=== PATIENT | female | born 1945 | race Caucasian/White ===

== ENCOUNTER 2023-10-07 04:12 | Outpatient (CLI) | payer OTHER | END 2023-10-07 23:59 | disposition EMS.NT | LOC: EMS 04:12 | DX: Z03.89 Encounter for observation for other suspected diseases and conditions ruled out (principal); Z91.81 History of falling ==

== ENCOUNTER 2024-09-21 17:58 | Inpatient (IN) ==
--- NOTE | 2024-09-21 18:08 | ED Physician Documentation ---
History of Present Illness Stated complaint Stated Complaint: AMS Chief complaint Chief Complaint: Neuro History obtained from History obtained from: EMS History of Present Illness Pain level max: 0 Pain level now: 0 Additonal information Additional information: 79-year-old female with reportedly acute altered mental status today. She is unable to give any history. EMS states that her claims that around 230 today he noticed that she was altered and not responding correctly. EMS found her combative and confused. Patient reportedly has a history of atrial fibrillation. She is on Pradaxa. Blood sugar normal with EMS. History of hypertension. Reportedly has had constipation. No reported falls or trauma. Patient received Versed with EMS. As well as Zofran. [place] Coma Scale Assess Eye opening: To Pain Verbal response: Inappropriate Motor response: Withdraws to Pain Total score: 9 Review of Systems Status of ROS: unobtainable due to mental status Meds/Allgy Allergies Allergies Allergy/AdvReac Type Severity Reaction Status Date / Time No Known Drug Allergies Allergy Verified 09/21/24 18:15 PFSH Active Problems All Active Problems (Updated 09/21/24 @ 19:00 by Rob Zhang MD) Altered mental status (Acute) Medical History Medical History (Updated 09/21/24 @ 19:00 by Rob Zhang MD) Hypertension Hyperthyroidism Social History Social History (Updated 09/21/24 @ 18:32 by Salome Collazo RN) Smoking Status: Never smoker Living arrangement: At home Marital Status: Living Condition: With spouse/s.o. Relationship: Do you feel safe in your home environment?: Yes Suffered physical, verbal, emotional, or financial abuse?: No ETOH Use: Wine Frequency: Daily ETOH Use Details: 2-3 drinks per day per . Exam Exam Vital Signs: Vital Signs x48h Temp Pulse Resp BP Pulse Ox O2 Flow Rate 09/21/24 18:19 89 22 94 2 09/21/24 18:01 36.8 C 89 10 L 150/119 H 97 Constitutional writhing, moaning HENMT normocephalic, head/scalp atraumatic and oral mucous membranes normal Eyes PERRL Respiratory breath sounds equal bilaterally and normal respiratory effort Cardiovascular normal heart rate noted and regular rhythm noted Gastrointestinal abdomen soft to palpation, nontender to palpation and nondistended Extremities no deformity Neurology GCS calculation - Eye opening: To Pain Verbal response: Inappropriate Motor response: Withdraws to Pain Liset Coma Scale total score: 9 Skin skin color normal Results Vitals Vitals: Vital Signs - 24 hr 09/21/24 18:01 09/21/24 18:19 Temperature 36.8 C Temperature Source Temporal Artery Scan Pulse Rate 89 89 Respiratory Rate 10 L 22 Blood Pressure 150/119 H O2 Saturation 97 94 O2 Source Room air Nasal cannula If not protocol: Oxygen Flow, liters/minute 2 Pain Intensity 0 Oxygen O2 Source Nasal cannula Labs Labs: Laboratory Tests 09/21/24 09/21/24 18:05 18:15 WBC 12.4 H RBC 4.95 Hgb 15.8 Hct 48.0 H MCV 97.0 MCH 31.9 H MCHC 32.9 RDW 13.1 Plt Count 204 MPV 9.8 Neut # (Auto) 10.3 H Lymph # (Auto) 1.3 L [place] # (Auto) 0.8 Eos # (Auto) 0.0 Baso # (Auto) 0.1 Absolute Nucleated RBC 0.00 Nucleated RBC % 0.0 Sodium 137 Potassium 3.3 L Chloride 101 Carbon Dioxide 28 Anion Gap 8.0 BUN 8 Creatinine 0.7 Estimated GFR (MDRD) 81 L Glucose 180 H Calcium 9.1 Total Bilirubin 0.9 AST 21 ALT 26 Alkaline Phosphatase 75 Total Protein 6.6 Albumin 4.0 Globulin 2.6 Albumin/Globulin Ratio 1.5 Lipase 12 TSH 0.78 Urine Color YELLOW Urine Clarity CLEAR Urine pH 6.5 Ur Specific [place] 1.015 Urine Protein NEGATIVE Urine Glucose (UA) NEGATIVE Urine Ketones 15 H Urine Occult Blood NEGATIVE Urine Nitrite NEGATIVE Urine Bilirubin NEGATIVE Urine Urobilinogen 1 (NORMAL) Ur Leukocyte Esterase NEGATIVE Ur Microscopic Review NOT INDICATED Urine Culture Comments NOT INDICATED Salicylates < 1.5 Urine Opiates Screen NEGATIVE Ur Buprenorphine Scrn NEGATIVE Ur Oxycodone Screen NEGATIVE Urine Methadone Screen NEGATIVE Acetaminophen 0.2 Ur Barbiturates Screen NEGATIVE Ur Tricyclics Screen NEGATIVE Ur Phencyclidine Scrn NEGATIVE Ur Amphetamine Screen NEGATIVE U Methamphetamines Scrn NEGATIVE U Benzodiazepines Scrn NEGATIVE Urine Cocaine Screen NEGATIVE U Cannabinoids Screen NEGATIVE Ur Drug Screen Comment CUTOFF CONC BELOW: Ethyl Alcohol < 10.0 PD Medical Decision Making ED course Complexity details: reviewed results, re-evaluated patient, considered differential and d/w family ED course: 79-year-old female with reportedly acute altered mental status. The and daughter arrived in the emergency department and has been states that she had been diagnosed with dementia but has not seen anyone for this yet. He states that he left to get [place] food around noon today and when he returned home at around 230 he noticed that she was swatting things away, acting differently and not interacting. Labs are ordered. Head CT ordered. Versed and Haldol ordered. These are pending at the time of signout. Please see Dr. Hui's note for further care. Discharge Plan Discharge Clinical Impression: Altered mental status Qualifiers: Altered mental status type: unspecified Qualified Code(s): R41.82 - Altered mental status, unspecified Print Language: Portuguese Stand Alone Forms: PCP List
[2024-09-21 18:18] LABS: BASOPHILS # (AUTO) 0.1 10^3/uL (0.0-0.1); BASOPHILS % (AUTO) 0.4 %; HGB - HEMOGLOBIN 15.8 g/dL (12.0-16.0); LYMPHOCYTES # (AUTO) 1.3 10^3/uL (1.5-3.5); LYMPHOCYTES % (AUTO) 10.4 %; MEAN CORPUSCULAR HEMOGLOBIN 31.9 pg (27.0-31.0); MEAN CORPUSCULAR HGB CONC 32.9 g/dL (32.0-36.0); MEAN PLATELET VOLUME 9.8 fL (7.9-10.8); MONOCYTES # (AUTO) 0.8 10^3/uL (0.0-1.0); MONOCYTES % (AUTO) 6.1 %; NEUTROPHILS # (AUTO) 10.3 10^3/uL (1.5-6.6); NEUTROPHILS % (AUTO) 82.8 %; PLT - PLATELET COUNT 204 10^3/uL (130-450); RED BLOOD COUNT 4.95 10^6/uL (4.20-5.40); RED CELL DISTRIBUTION WIDTH 13.1 % (12.0-15.0); WHITE BLOOD COUNT 12.4 x10^3/uL (4.8-10.8)
[2024-09-21 18:24] LABS: BILIRUBIN,URINE NEGATIVE (NEGATIVE); CLARITY,URINE CLEAR (CLEAR); GLUCOSE, URINE (UA) NEGATIVE (NEGATIVE); KETONES,URINE (UA) 15 mg/dL (NEGATIVE); LEUKOCYTE ESTERASE, URINE NEGATIVE (NEGATIVE); NITRITE,URINE NEGATIVE (NEGATIVE); OCCULT BLOOD,URINE NEGATIVE (NEGATIVE); PH,URINE 6.5 PH (5.0-7.5); PROTEIN,URINE NEGATIVE (NEGATIVE); UROBILINOGEN,URINE 1 (NORMAL) E.U./dL (NORMAL)
[2024-09-21] MEDS: MIDAZOLAM 2 MG/2 ML VIAL IVP STA (18:24)
[2024-09-21 18:37] LABS: AMPHETAMINE SCREEN,URINE NEGATIVE (NEGATIVE); BARBITURATE SCREEN,UR NEGATIVE (NEGATIVE); BENZODIAZEPINES SCREEN, URINE NEGATIVE (NEGATIVE); BUPRENORPHINE SCREEN, URINE NEGATIVE (NEGATIVE); COCAINE SCREEN URINE NEGATIVE (NEGATIVE); METHADONE SCREEN, URINE NEGATIVE (NEGATIVE); METHAMPHETAMINES SCREEN, URINE NEGATIVE (NEGATIVE); OPIATE SCREEN, URINE NEGATIVE (NEGATIVE); OXYCODONE SCREEN, URINE NEGATIVE (NEGATIVE); THC CANNABINOID SCREEN, URINE NEGATIVE (NEGATIVE); TRICYCLIC ANTIDEPRESSANT,URINE NEGATIVE (NEGATIVE)
[2024-09-21 18:40] LABS: ACETAMINOPHEN 0.2 ug/mL; ALBUMIN/GLOBULIN RATIO 1.5 (1.0-2.2); ALKALINE PHOSPHATASE 75 IU/L (42-121); ALT ALANINE AMINOTRANSFERASE 26 IU/L (10-60); AST ASPARTATE AMINOTRANSFERASE 21 IU/L (10-42); BILIRUBIN,TOTAL 0.9 mg/dL (0.2-1.0); BUN - BLOOD UREA NITROGEN 8 mg/dL (6-20); CALCIUM 9.1 mg/dL (8.5-10.3); CARBON DIOXIDE - CO2 28 mmol/L (21-32); CHLORIDE 101 mmol/L (101-111); CREATININE 0.7 mg/dL (0.6-1.3); ETOH - ETHANOL < 10.0 mg/dL; GFR - MDRD 81 (>89); GLUCOSE 180 mg/dL (74-104); LIPASE 12 U/L (11-82); POTASSIUM 3.3 mmol/L (3.5-4.5); SALICYLATE < 1.5 mg/dL; SODIUM 137 mmol/L (135-145); TOTAL PROTEIN 6.6 g/dL (6.4-8.9)
[2024-09-21] MEDS: HALOPERIDOL 5 MG/ML VIAL IVP STA (18:44)
[2024-09-21 18:50] LABS: THYROID STIMULATING HORMONE 0.78 uIU/mL (0.34-5.60)
--- NOTE | 2024-09-21 19:47 | CT Report ---
PROCEDURE: CT Head WO INDICATIONS: altered mental status TECHNIQUE: Noncontrast 4.5 mm thick angled axial sections acquired from the foramen magnum to the vertex. For radiation dose reduction, the following was used: automated exposure control, adjustment of mA and/or kV according to patient size. COMPARISON: None. FINDINGS: Image quality: Excellent. CSF spaces: Mild prominence of the bifrontal extra-axial spaces, probably benign. Subcortical volume appears normal without significant atrophy. Basal cisterns are patent. No extra-axial fluid collections. Ventricles are normal in size and shape. Brain: No midline shift. No intracranial mass effect or hemorrhage. Odonnell- white matter interface is normal. Skull and face: Calvarium and visualized facial bones are intact, without suspicious lesions. Sinuses: Visualized sinuses and mastoids are clear. IMPRESSION: No acute intracranial pathology. Reviewed by: Ebony Guzman MD on 09/21/2024 7:46 PM PDT Approved by: Ebony Guzman MD on 09/21/2024 7:46 PM PDT Station ID: [id number]
[2024-09-21] MEDS: SODIUM CHLORIDE 0.9% 1,000 ML IV STA (20:02)
--- NOTE | 2024-09-21 20:17 | HISTORY & PHYSICAL EXAMINATION ---
Chief Complaint Chief Complaint Chief Complaint: Altered mental status History of Present Illness History Obtained From History obtained from: Chart review Exam Limitations: Sedated on Versed History of Present Illness HPI Comment/Other: 79-year-old female who is being worked up for dementia. Other history of atrial fibrillation, hypertension. Her noticed that she was combative and confused starting at 230 today. Per EMS, blood sugar was normal. She was so combative with EMS that they gave her Versed en route In the ER, workup was overall unremarkable. CT head was performed which showed no acute abnormality. Lab work revealed potassium 3.3, WBC 12.4. UA was negative other than ketonuria. UDS, Tylenol, alcohol, salicylates negative. Hospitalist was contacted for hobs for acute delirium Meds/Allgy Allergies Allergies Allergy/AdvReac Type Severity Reaction Status Date / Time No Known Drug Allergies Allergy Verified 09/21/24 18:15 PFSH Active Problems All Active Problems (Updated 09/21/24 @ 20:58 by Nabor Noonan DNP) Hypokalemia (Acute) Leukocytosis (Acute) Agitation (Acute) Altered mental status (Acute) Medical History Medical History (Updated 09/21/24 @ 20:58 by Nabor Noonan DNP) Hypertension Hyperthyroidism Social History Social History (Updated 09/21/24 @ 18:32 by Salome Collazo RN) Smoking Status: Never smoker Living arrangement: At home Marital Status: Living Condition: With spouse/s.o. Relationship: Do you feel safe in your home environment?: Yes Suffered physical, verbal, emotional, or financial abuse?: No ETOH Use: Wine Frequency: Daily ETOH Use Details: 2-3 drinks per day per . Review of Systems Status of ROS: unobtainable due to mental status (Limited due to sedation, ROS obtained from chart review) Exam Exam Vital Signs: Vital Signs x48h Temp Pulse Resp BP Pulse Ox O2 Flow Rate 09/21/24 21:00 71 22 158/100 H 99 3 09/21/24 20:15 88 20 178/100 H 99 09/21/24 19:45 89 22 156/104 H 99 09/21/24 18:49 78 22 187/78 H 99 09/21/24 18:34 76 22 180/98 H 99 09/21/24 18:19 89 22 94 2 09/21/24 18:01 36.8 C 89 10 L 150/119 H 97 Constitutional Obese elderly female, snoring HENMT normocephalic and head/scalp atraumatic Eyes PERRL Neck/C-Spine visual inspection normal Lymph no lymphadenopathy noted Chest inspection of chest normal Respiratory breath sounds equal bilaterally Cardiovascular normal heart rate noted Gastrointestinal abdomen normal to inspection and abdomen soft to palpation Extremities normal to inspection Neurology Does not track with eyes. Responds to painful stimulus in all extremities Psychiatry Sedated Skin Fungal rash in folds Conclusion/Plan Problem List (1) Altered mental status: Plan: Acutely delirious per EMS, they gave her a dose of Versed She has a leukocytosis, but has negative UA and negative CXR MRI in a.m. She had ketonuria, ordered 200 mg thiamine supplement and IVF She has had elevated blood pressures, the highest was 180/98. Unsure if this is the cause of her delirium or if the delirium is causing the high blood pressures. Regardless, will allow permissive hypertension for now and will reduce her blood pressure after we get MRI results back Qualifiers: Altered mental status type: unspecified Qualified Code(s): R41.82 - Altered mental status, unspecified (2) Leukocytosis: Plan: Likely reactionary, CBC in a.m. (3) Hypokalemia: Plan: 40 mill equivalent replacement. P.o. preferred, but as she is sedated on Versed, will switch to IV Plan Placed in observation Full code Her is her surrogate decision maker Lab Results Lab results reviewed: Yes 09/21/24 18:05 09/21/24 18:05 Diagnostic Imaging Results Diagnostic Imaging Results: positive Final report reviewed Core Measures Anticipated LOS I expect patient to be DC'd or transferred within 96 hours.: Yes DVT/VTE - Prophylaxis VTE/DVT Prophylaxis med ordered at admit?: Yes
--- NOTE | 2024-09-21 21:06 | XRAY Report ---
PROCEDURE: XR Chest 1V INDICATIONS: altered mentation TECHNIQUE: One view of the chest was acquired. COMPARISON: None. FINDINGS: Surgical changes and devices: None. Lungs and pleura: No pleural effusions or pneumothorax. No consolidation. Mediastinum: Mediastinal contours appear normal. Heart size is enlarged. Bones and chest wall: No suspicious bony lesions. Overlying soft tissues appear unremarkable. IMPRESSION: No acute cardiopulmonary process. Reviewed by: Maico Motta MD on 09/21/2024 9:05 PM PDT Approved by: Maico Motta MD on 09/21/2024 9:05 PM PDT Station ID: [id number]
[2024-09-21] MEDS ORDERED: SODIUM CHLORIDE FLUSH 0.9% 10 ML SYRINGE IVP PRN (21:16)
[2024-09-21] MEDS ORDERED: ONDANSETRON ODT 4 MG TABLET TL PRN (21:16)
[2024-09-21] MEDS ORDERED: ONDANSETRON 4 MG/2 ML VIAL IVP PRN (21:16)
[2024-09-21] MEDS: LACTATED RINGERS 1,000 ML IV ONE (21:26)
[2024-09-21] MEDS: POTASSIUM CHLORIDE 20 MEQ TABLET PO STA (21:27)
[2024-09-21] MEDS ORDERED: OLANZapine 10 MG VIAL IM PRN (22:26)
[2024-09-22] MEDS ORDERED: THIAMINE 100 MG/1 ML 2 ML MDV ONE (00:34)
[2024-09-22] MEDS: THIAMINE 100 MG/1 ML 2 ML MDV IVP ONE (01:06)
[2024-09-22] MEDS: SODIUM CHLORIDE FLUSH 0.9% 10 ML SYRINGE IVP SCH (01:07)
[2024-09-22] MEDS: NYSTATIN POWDER 15 GM TOP SCH (01:07)
[2024-09-22 06:44] LABS: BASOPHILS % (AUTO) 0.3 %; HCT - HEMATOCRIT 48.1 % (37.0-47.0); HGB - HEMOGLOBIN 15.2 g/dL (12.0-16.0); LYMPHOCYTES # (AUTO) 2.1 10^3/uL (1.5-3.5); LYMPHOCYTES % (AUTO) 16.7 %; MEAN CORPUSCULAR HEMOGLOBIN 32.1 pg (27.0-31.0); MEAN CORPUSCULAR HGB CONC 31.6 g/dL (32.0-36.0); MEAN CORPUSCULAR VOLUME 101.7 fL (81.0-99.0); MEAN PLATELET VOLUME 9.9 fL (7.9-10.8); MONOCYTES # (AUTO) 1.3 10^3/uL (0.0-1.0); MONOCYTES % (AUTO) 10.2 %; NEUTROPHILS # (AUTO) 8.9 10^3/uL (1.5-6.6); NEUTROPHILS % (AUTO) 72.3 %; PLT - PLATELET COUNT 182 10^3/uL (130-450); RED BLOOD COUNT 4.73 10^6/uL (4.20-5.40); RED CELL DISTRIBUTION WIDTH 13.4 % (12.0-15.0); WHITE BLOOD COUNT 12.3 x10^3/uL (4.8-10.8)
[2024-09-22 07:26] LABS: CREATININE 0.8 mg/dL (0.6-1.3); POTASSIUM 3.3 mmol/L (3.5-4.5)
[2024-09-22] MEDS: ENOXAPARIN 40 MG/0.4 ML SYRINGE SUBQ SCH (08:28)
[2024-09-22] MEDS: MAGNESIUM SULFATE 2 GRAM 2 GM/50 ML BAG IV ONE (11:08)
[2024-09-22] MEDS: POTASSIUM CHLOR 10 MEQ/100 ML 10 MEQ/100 ML BAG IV SCH (11:09)
[2024-09-22] MEDS: POTASSIUM CHLORIDE 20 MEQ TABLET PO ONE (12:02)
--- NOTE | 2024-09-22 12:48 | MRI Report ---
PROCEDURE: MRI Brain WO INDICATIONS: Delirium workup TECHNIQUE: Noncontrast axial T1 spin echo, axial T2 fast spin echo, sagittal and axial FLAIR, coronal T2 fast spin echo, axial gradient echo, axial diffusion and ADC through the brain. COMPARISON: 09/21/2024 FINDINGS: Image quality: Suboptimal due to motion artifact, despite multiple attempts to learning coach. CSF Spaces: Basal cisterns are patent. No extra-axial fluid collections. Ventricles are normal in size and shape. Brain: No intracranial masses or hemorrhage. Odonnell/white matter interface is normal. Brainstem appears normal. Diffusion-weighted images demonstrate no acute ischemic insult. No chronic ischemic insults. Normal intravascular flow voids are present. Leukoaraiosis, commonly caused by chronic small vessel ischemic disease. Age-related volume loss. Skull and face: Calvarium has normal marrow signal. Orbits appear normal. Sinuses: Sinuses and mastoids are clear. IMPRESSION: Leukoaraiosis, commonly caused by chronic small vessel ischemic disease. Age- related volume loss. Reviewed by: Umer Valdivia MD on 09/22/2024 12:47 PM PDT Approved by: Umer Valdivia MD on 09/22/2024 12:47 PM PDT Station ID: [id number]
--- NOTE | 2024-09-22 13:48 | PHARMACY PROGRESS NOTE ---
Best Possible Medication History Admit Date and Time: 09/21/242016 Home Medications Medication Instructions Recorded Confirmed Type atenolol 25 mg tablet 25 mg PO ONCE 09/22/2409/22 History dabigatran etexilate 150 mg capsule 150 mg PO BID 09/1109/22/24 History duloxetine 60 mg capsule,delayed 60 mg PO ONCE 5 09/22/24 History release empagliflozin 10 mg tablet 10 mg PO ONCE 09/22/2409/11 History (Jardiance) furosemide 20 mg tablet 20 mg PO ONCE 09/22/2409/22 History gabapentin 300 mg capsule 300 mg PO QID 09/22/2409/22 History levothyroxine 50 mcg tablet 50 mcg PO ONCE 09/22/24 History lisinopril 5 mg tablet 5 mg PO ONCE 09/22/24 History omeprazole 20 mg capsule,delayed 20 mg PO ONCE 5 09/22/24 History release pravastatin 80 mg tablet 80 mg PO ONCE 09/22/2409/22 History Processed by: Pharmacy Medications reviewed in ED?: Yes Medication History completed: Yes Patient Interview: Pt unable to participate Secondary Source(s): Written medication list and Insurance records [facility] Statement: As the person ultimately responsible for medication therapy, providers are able to order a medication from an existing home medication list in [facility] via the "Reconcile Routine" prior to Confirmation of that medication by bilingual patient support caseworker. Such practice is discouraged except when the physician, in their clinical judgment, deems that a medical need exists for a medication without regard to previous use.
[2024-09-22] MEDS ORDERED: LORazepam 1 MG TABLET PO PRN (16:12)
[2024-09-22] MEDS ORDERED: LORazepam 2 MG/ML VIAL IVP PRN (16:22)
--- NOTE | 2024-09-22 16:23 | PROVIDER PROGRESS NOTE ---
Subjective Prog Note Date Prog Note Date: 09/22/24 Subjective Pt reports feeling: No change Subjective: Alert enough to take oral meds, but still confused and pulling at telemetry leads Current Medications Current Medications Current Medications: Current Medications Generic Name Dose Route Start Last Admin Trade Name Freq PRN Reason Stop Dose Admin Acetaminophen 650 mg 09/21/24 21:16 Acetaminophen 325 Mg Tablet PO Q4HR PRN Pain 1 to 4, or Fever Chlordiazepoxide HCl 5 mg 09/22/24 18:00 Chlordiazepoxide 5 Mg Capsule PO Q6HR CLAIRE Enoxaparin Sodium 40 mg 09/22/24 09:00 09/22/24 08:28 Enoxaparin 40 Mg/0.4 Ml Syringe SUBQ Not Given DAILY CLAIRE Lorazepam 1 mg 09/22/24 16:12 Lorazepam 1 Mg Tablet PO Q1H PRN CIWA > 8 Protocol Nystatin 1 applic 09/21/24 22:00 09/22/24 08:29 Nystatin Powder 15 Gm TOP 1 applic BID CLAIRE Administration Olanzapine 5 mg 09/21/24 22:26 Olanzapine 10 Mg Vial IM 09/22/24 22:25 ONCE PRN Agitation Ondansetron HCl 4 mg 09/21/24 21:16 Ondansetron Odt 4 Mg Tablet TL Q6HR PRN Nausea / Vomiting Ondansetron HCl 4 mg 09/21/24 21:16 Ondansetron 4 Mg/2 Ml Vial IVP Q6HR PRN Nausea / Vomiting Multivit/Folic Acid/Iron 1 tab 09/23/24 09:00 Vitamin Tablet PO DAILY CLAIRE Sodium Chloride 10 ml 09/21/24 21:16 Sodium Chloride Flush 0.9% 10 Ml Syringe IVP PRN PRN NEEDED PER PROVIDER ORDERS Sodium Chloride 10 ml 09/22/24 01:00 09/22/24 08:29 Sodium Chloride Flush 0.9% 10 Ml Syringe IVP Not Given 0100,0900,1700 CLAIRE Thiamine HCl 100 mg 09/23/24 09:00 Thiamine 100 Mg Tablet PO DAILY CLAIRE Objective Vital Signs/Intake & Output Reviewed Vital Signs: Yes Vital Signs: Vital Signs x48h Temp Pulse Resp BP Pulse Ox 09/22/24 16:15 36.6 C 83 20 127/56 L 97 09/22/24 13:00 36.8 C 83 20 114/73 97 09/22/24 08:21 152/73 H Intake & Output: Intake & Output 09/19/24 09/20/24 09/21/24 09/22/24 23:59 23:59 23:59 23:59 Intake Total 1242 / 1242 120 / 120 Balance 1242 / 1242 120 / 120 Weight (kg) 110 kg Objective General Appearance: positive No acute distress Eyes Bilateral: positive Normal inspection ENT: positive ENT inspection nml Neck: positive Nml inspection Respiratory: positive Chest non-tender Cardiovascular: positive Regular rate & rhythm Abdomen: positive Non-tender Skin: positive Color nml Extremities: positive Non-tender Neurologic/Psychiatric: positive Other (Somnolent from dose of Ativan this morning) Lab Results 09/22/24 06:38 09/22/24 06:38 Other Labs: Lab Results x24hrs 09/22/24 09/21/24 09/21/24 Range/Units 06:38 18:15 18:05 WBC 12.3 H 12.4 H (4.8-10.8) x10^3/uL RBC 4.73 4.95 (4.20-5.40) 10^6/uL Hgb 15.2 15.8 (12.0-16.0) g/dL Hct 48.1 H 48.0 H (37.0-47.0) % MCV 101.7 H 97.0 (81.0-99.0) fL MCH 32.1 H 31.9 H (27.0-31.0) pg MCHC 31.6 L 32.9 (32.0-36.0) g/dL RDW 13.4 13.1 (12.0-15.0) % Plt Count 182 204 (130-450) 10^3/uL MPV 9.9 9.8 (7.9-10.8) fL Neut # (Auto) 8.9 H 10.3 H (1.5-6.6) 10^3/uL Lymph # (Auto) 2.1 1.3 L (1.5-3.5) 10^3/uL [place] # (Auto) 1.3 H 0.8 (0.0-1.0) 10^3/uL Eos # (Auto) 0.0 0.0 (0.0-0.7) 10^3/uL Baso # (Auto) 0.0 0.1 (0.0-0.1) 10^3/uL Absolute Nucleated RBC 0.00 0.00 x10^3/uL Nucleated RBC % 0.0 0.0 /100WBC Sodium 139 137 (135-145) mmol/L Potassium 3.3 L 3.3 L (3.5-4.5) mmol/L Chloride 105 101 (101-111) mmol/L Carbon Dioxide 23 28 (21-32) mmol/L Anion Gap 11.0 8.0 (6-13) BUN 9 8 (6-20) mg/dL Creatinine 0.8 0.7 (0.6-1.3) mg/dL Estimated GFR (MDRD) 70 L 81 L (>89) Glucose 168 H 180 H (74-104) mg/dL Calcium 9.0 9.1 (8.5-10.3) mg/dL Total Bilirubin 0.9 (0.2-1.0) mg/dL AST 21 (10-42) IU/L ALT 26 (10-60) IU/L Alkaline Phosphatase 75 (42-121) IU/L Total Protein 6.6 (6.4-8.9) g/dL Albumin 4.0 (3.2-5.5) g/dL Globulin 2.6 (2.1-4.2) g/dL Albumin/Globulin Ratio 1.5 (1.0-2.2) Lipase 12 (11-82) U/L TSH 0.78 (0.34-5.60) uIU/mL Urine Color YELLOW Urine Clarity CLEAR (CLEAR) Urine pH 6.5 (5.0-7.5) PH Ur Specific [place] 1.015 (1.002-1.030) Urine Protein NEGATIVE (NEGATIVE) mg/dL Urine Glucose (UA) NEGATIVE (NEGATIVE) mg/dL Urine Ketones 15 H (NEGATIVE) mg/dL Urine Occult Blood NEGATIVE (NEGATIVE) Urine Nitrite NEGATIVE (NEGATIVE) Urine Bilirubin NEGATIVE (NEGATIVE) Urine Urobilinogen 1 (NORMAL) (NORMAL) E.U./dL Ur Leukocyte Esterase NEGATIVE (NEGATIVE) Ur Microscopic Review NOT INDICATED Urine Culture Comments NOT INDICATED Salicylates < 1.5 mg/dL Urine Opiates Screen NEGATIVE (NEGATIVE) Ur Buprenorphine Scrn NEGATIVE (NEGATIVE) Ur Oxycodone Screen NEGATIVE (NEGATIVE) Urine Methadone Screen NEGATIVE (NEGATIVE) Acetaminophen 0.2 ug/mL Ur Barbiturates Screen NEGATIVE (NEGATIVE) Ur Tricyclics Screen NEGATIVE (NEGATIVE) Ur Phencyclidine Scrn NEGATIVE (NEGATIVE) Ur Amphetamine Screen NEGATIVE (NEGATIVE) U Methamphetamines Scrn NEGATIVE (NEGATIVE) U Benzodiazepines Scrn NEGATIVE (NEGATIVE) Urine Cocaine Screen NEGATIVE (NEGATIVE) U Cannabinoids Screen NEGATIVE (NEGATIVE) Ur Drug Screen Comment CUTOFF CONC BELOW: Ethyl Alcohol < 10.0 mg/dL Assessment/Plan Problem List (1) Altered mental status: Impression: Delirious and combative in the field, received Versed Workup positive for leukocytosis but with negative UA negative CXR MRI with no acute abnormality She has ketone urea, and family reports alcohol use, will order CIWA scale with as needed Ativan p.o. and IV She had high blood pressures on presentation, this has resolved Qualifiers: Altered mental status type: unspecified Qualified Code(s): R41.82 - Altered mental status, unspecified (2) Leukocytosis: Impression: WBC 12.3 today, continue daily CBC. No concern for infection at this time (3) Hypokalemia: Impression: Continue to replete. Oral potassium and magnesium ordered today
[2024-09-22] MEDS: chlordiazePOXIDE 5 MG CAPSULE PO SCH (19:05)
[2024-09-22] MEDS: CALCIUM CARBONATE CHEW 500 MG TABLET PO PRN (21:01)
[2024-09-22] MEDS: PANTOPRAZOLE 40 MG TABLET PO SCH (21:01)
[2024-09-23 05:47] LABS: BASOPHILS # (AUTO) 0.1 10^3/uL (0.0-0.1); BASOPHILS % (AUTO) 0.5 %; EOSINOPHILS # (AUTO) 0.1 10^3/uL (0.0-0.7); EOSINOPHILS % (AUTO) 0.6 %; HCT - HEMATOCRIT 44.7 % (37.0-47.0); HGB - HEMOGLOBIN 14.3 g/dL (12.0-16.0); LYMPHOCYTES # (AUTO) 2.6 10^3/uL (1.5-3.5); LYMPHOCYTES % (AUTO) 24.1 %; MEAN CORPUSCULAR HEMOGLOBIN 31.8 pg (27.0-31.0); MEAN CORPUSCULAR VOLUME 99.6 fL (81.0-99.0); MEAN PLATELET VOLUME 10.1 fL (7.9-10.8); MONOCYTES % (AUTO) 9.3 %; NEUTROPHILS # (AUTO) 6.9 10^3/uL (1.5-6.6); NEUTROPHILS % (AUTO) 65.2 %; PLT - PLATELET COUNT 188 10^3/uL (130-450); RED BLOOD COUNT 4.49 10^6/uL (4.20-5.40); RED CELL DISTRIBUTION WIDTH 13.3 % (12.0-15.0); WHITE BLOOD COUNT 10.6 x10^3/uL (4.8-10.8)
[2024-09-23] MEDS: ACETAMINOPHEN 325 MG TABLET PO PRN (05:53)
[2024-09-23 05:58] LABS: CALCIUM 9.2 mg/dL (8.5-10.3); CREATININE 0.7 mg/dL (0.6-1.3); POTASSIUM 3.8 mmol/L (3.5-4.5)
[2024-09-23 07:40] VITALS: BP 144/72; TEMP 97.7; O2SAT 95
[2024-09-23] MEDS: PRENATAL VITAMIN TABLET PO SCH (08:35)
[2024-09-23] MEDS: THIAMINE 100 MG TABLET PO SCH (08:35)
--- NOTE | 2024-09-23 12:40 | Discharge Summary ---
Discharge Summary Admit Date: 09/21/24 Discharge Date: 09/23/24 Discharging Provider: Nabor Noonan NP Primary Care Provider: Etienne Alves Code Status: Attempt Resuscitation DIAGNOSES Admission Diagnoses: Delirium Leukocytosis Hypokalemia Discharge Diagnoses with Status of Each Condition: Deliriumresolved Leukocytosisresolved Hypokalemiaresolved HPI History of Present Illness: 79-year-old female who is being worked up for dementia. Other history of atrial fibrillation, hypertension. Her noticed that she was combative and confused starting at 230 today. Per EMS, blood sugar was normal. She was so combative with EMS that they gave her Versed en route In the ER, workup was overall unremarkable. CT head was performed which showed no acute abnormality. Lab work revealed potassium 3.3, WBC 12.4. UA was negative other than ketonuria. UDS, Tylenol, alcohol, salicylates negative. Hospitalist was contacted for hobs for acute delirium HOSPITAL COURSE Hospital Course: Patient was admitted into the hospital and MRI brain was performed which showed chronic small vessel ischemic changes and age-related volume loss. Chest x-ray, UA without any infectious concern. Her leukocytosis resolved on its own. Hypokalemia was repleted and resolved. Her mentation is much better today. I believe that this patient has dementia and was experiencing behavior disturbances. This is possibly exacerbated by her alcohol use as she reports drinking 2-3 drinks a night. I discharged her with vitamin, thiamine as well as trazodone to help with sleep and encouraged her to work on her sleep hygiene. She is already being worked up for dementia in the outpatient setting, I would encourage she continue this ALLERGIES Allergies Allergy/AdvReac Type Severity Reaction Status Date / Time No Known Drug Allergies Allergy Verified 09/21/24 18:15 MEDICATIONS Ambulatory Orders Medication Instructions Recorded Confirmed atenolol 25 mg tablet 25 mg PO ONCE 09/22/2409/22 dabigatran etexilate 150 mg capsule 150 mg PO BID 09/1109/22/24 duloxetine 60 mg capsule,delayed 60 mg PO ONCE 5 09/22/24 release empagliflozin 10 mg tablet 10 mg PO ONCE 09/22/2409/11 (Jardiance) furosemide 20 mg tablet 20 mg PO ONCE 09/22/2409/22 gabapentin 300 mg capsule 300 mg PO QID 09/22/2409/22 levothyroxine 50 mcg tablet 50 mcg PO ONCE 09/22/24 lisinopril 5 mg tablet 5 mg PO ONCE 09/22/24 omeprazole 20 mg capsule,delayed 20 mg PO ONCE 5 09/22/24 release pravastatin 80 mg tablet 80 mg PO ONCE 09/22/2409/22 vit,calcium 27-ferrous 1 tab PO DAILY #30 tab s 09/23/24 fum 60 mg iron-folic acid 1 mg tablet (Trinatal Rx 1) thiamine mononitrate (vit B1) 100 100 mg PO DAILY #30 tabs 09/23/24 mg tablet trazodone 50 mg tablet 50 mg PO QPM #30 tabs PHYSICAL EXAM AT DISCHARGE Vital Signs: Vital Signs x48h Temp Pulse Resp BP Pulse Ox 09/23/24 07:25 36.5 C 79 18 144/72 H 95 General Appearance: positive No acute distress and Alert Eyes Bilateral: positive Normal inspection ENT: positive ENT inspection nml Neck: positive Nml inspection Respiratory: positive Chest non-tender Cardiovascular: positive Regular rate & rhythm Peripheral Pulses: positive 2+ Abdomen: positive Non-tender Skin: positive Color nml Extremities: positive Non-tender Neurologic/Psychiatric: positive Oriented x3 and Other (Displays short-term memory loss, inattention, sporadic thought process) LABS 09/23/24 05:16 09/23/24 05:16 DIAGNOSTIC IMAGING Diagnostic Imaging Results: Final report reviewed FOLLOW UP Follow Up: With PCP TIME SPENT Time Spent in Discharge (Minutes): 40 Discharge Plan Discharge Patient Disposition: Home, Self Care Condition: Stable Medically Cleared Date:: 09/23/24 Prescriptions: New Trinatal Rx 1 60 mg iron-1 mg Tablet 1 tab PO DAILY Qty: 30 0RF thiamine mononitrate (vit B1) 100 mg Tablet 100 mg PO DAILY Qty: 30 0RF trazodone 50 mg tablet 50 mg PO QPM Qty: 30 2RF Continued atenolol 25 mg tablet 25 mg PO ONCE pravastatin 80 mg tablet 80 mg PO ONCE levothyroxine 50 mcg tablet 50 mcg PO ONCE gabapentin 300 mg capsule 300 mg PO QID omeprazole 20 mg capsule,delayed release(DR/EC) 20 mg PO ONCE lisinopril 5 mg tablet 5 mg PO ONCE furosemide 20 mg tablet 20 mg PO ONCE duloxetine 60 mg capsule,delayed release(DR/EC) 60 mg PO ONCE dabigatran etexilate 150 mg capsule 150 mg PO BID Jardiance 10 mg tablet 10 mg PO ONCE Activity Restrictions: Activity as Tolerated Diet: Regular Health Concerns: You came into the hospital because you were a little bit more confused than you normally are. We worked you up for causes of confusion. Your MRI showed no acute abnormality but did show some chronic changes. Infectious workup was negative including chest x-ray and urinalysis. I believe that this is a progression of an underlying dementia. Your alcohol consumption is not helping this, so I would recommend that you stop that. I am discharging you home with vitamins that can help brain function if there are deficiencies. I would highly suggest that you work on your sleep hygiene. Please do your best to stay awake during the day and use as much light as you can manage so that you can sleep during the night. I have also prescribed a sleep aid called trazodone. Try this and see if it helps her sleep at night Print Language: Greek Patient Instructions: Dementia Coping Tips Caregiver Stand Alone Forms: PCP List Follow-up Care: SALLY ALVES MD [Primary Care Provider] -
--- NOTE | 2024-09-23 23:06 | ED Physician Documentation ---
ED Addendum Addendum Addendum: Patient with altered mental status and agitiation acutely without obvious cause on initial testing of labs nad head CT. Pending admission for further workup with awaiting hospitalist callback. Hospitalist called back and I reviewed summary of presentation and workup, with concern for still cause of symptoms and consider CVA. Too late for MRI at this point in evening. Hospitalist will place in hospital. Pt has adequate airway and ventilations. Still confused and sleepy. Disposition: placed in hospital by hospitalist service Diagosis: Acute altered mental status agitation Discharge Plan Discharge Patient Disposition: ED Place in Observation Condition: Stable Clinical Impression: Agitation Altered mental status Qualifiers: Altered mental status type: unspecified Qualified Code(s): R41.82 - Altered mental status, unspecified Interventions: ED Admission Assessment Last Done: 09/21/24 21:01
== END 2024-09-23 13:00 | disposition home or self-care (01) | DRG 884 ==
LOC: MS2 17:58 → ED 17:58 → MS2 21:02
PROVIDERS: ADMIT Nurse Practitioner Acute Care; ATTEND Nurse Practitioner Acute Care
DX: I48.91 Unspecified atrial fibrillation; E87.6 Hypokalemia; I10 Essential (primary) hypertension; R41.0 Disorientation, unspecified; F03.911 Unspecified dementia, unspecified severity, with agitation; D72.829 Elevated white blood cell count, unspecified